=== PATIENT | male | born 1950 | race Caucasian/White ===

== ENCOUNTER 2020-07-12 22:16 | Inpatient (IN) | payer SELFPAY ==
[~2020-07-12] VITALS: Ht 175.3 cm; Wt 68.0 kg
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
--- NOTE | 2020-07-12 22:28 | NUR ---
TECH AT BEDSIDE FOR WOUND CARE
--- NOTE | 2020-07-12 22:48 | NUR ---
ENGINEERING INSPECTION ASSISTANT AT BEDSIDE FOR BLOOD DRAW
[2020-07-12 22:59] LABS: BASOPHILS # (AUTO) 0.1 /CMM (0.0-0.2); BASOPHILS % (AUTO) 0.5 % (0.0-2.0); EOSINOPHILS % (AUTO) 0.1 % (0.0-6.0); HEMATOCRIT 45 % (39-51); HEMOGLOBIN 15.2 g/dL (13.5-17.5); LYMPHOCYTES % (AUTO) 9.4 % (20.0-44.0); MEAN CORPUSCULAR HGB CONC 34 g/dl (31.0-36.0); MEAN CORPUSCULAR VOLUME 94 fL (80-96); MONOCYTES # (AUTO) 0.9 /CMM (0.1-1.30); MONOCYTES % (AUTO) 8.7 % (2.0-12.0); NEUTROPHILS # (AUTO) 8.7 /CMM (1.8-8.9); NEUTROPHILS % (AUTO) 81.3 % (43.0-81.0); PLATELET COUNT (AUTO) 182 /CMM (150-450); WHITE BLOOD COUNT (AUTO) 10.6 K/uL (4.3-11.0)
[2020-07-12] MEDS ORDERED: OLANZAPINE 10 MG VIAL IM ONE ×2 (23:00)
[2020-07-12 23:11] LABS: CALCIUM, SERUM 9.2 mg/dL (8.5-10.1); CARBON DIOXIDE 24 mmol/L (21-32); CHLORIDE 104 mmol/L (98-107); CREATININE 1.2 mg/dL (0.6-1.3); GLUCOSE 88 mg/dL (74-106); POTASSIUM 3.7 mmol/L (3.5-5.1); SODIUM SERUM 141 mmol/L (136-145); UREA NITROGEN, BLOOD 24 mg/dL (7-18)
[2020-07-12 23:16] LABS: ALANINE AMINOTRANSFERASE 41 U/L (12-78); ALBUMIN 4.2 g/dL (3.4-5.0); ALCOHOL, BLOOD < 3 mg/dL (0-0); ALKALINE PHOSPHATASE 78 U/L (46-116); ASPARTATE AMINOTRANSFERASE 66 U/L (15-37); BILIRUBIN,DIRECT 0.3 mg/dL (0.0-0.2); BILIRUBIN,TOTAL 0.9 mg/dL (0.2-1.0); TOTAL PROTEIN, SERUM 7.5 g/dL (6.4-8.2)
[2020-07-12 23:18] LABS: ACETAMINOPHEN < 2 ug/ml (10-30)
[2020-07-13 05:10] LABS: BILIRUBIN,URINE SMALL (NEGATIVE); COLOR,URINE YELLOW (YELLOW); LEUKOCYTE ESTERASE ,URINE NEGATIVE (NEGATIVE); NITRITE, URINE NEGATIVE (NEGATIVE); PH,URINE 5.5 (5.0-8.0); PROTEIN,URINE TRACE mg/dl (NEGATIVE); UGLUCOSE NEGATIVE (NEGATIVE); UROBILINOGEN,URINE 0.2 EU/dL (0.2)
[2020-07-13 05:13] LABS: BACTERIA,URINE None seen /HPF (None Seen); HYALINE CASTS, URINE Few /LPF (None Seen); MUCUS,URINE Few /LPF (None Seen); RBC,URINE 0-2 /HPF (0-2); SQUAMOUS EPITHELIAL CELL,UR Few /HPF (None Seen); WBC,URINE 0-2 /HPF (0-3)
[2020-07-13] MEDS ORDERED: LORAZEPAM 1 MG TABLET ONE (05:40)
[2020-07-13] MEDS ORDERED: LORAZEPAM INJ 2 MG/ML VIAL ONE (05:45)
[2020-07-13] MEDS ORDERED: LORAZEPAM 1 MG TABLET PO ONE ×2 (06:00)
[2020-07-13] MEDS ORDERED: LORAZEPAM INJ 2 MG/ML VIAL IV ONE (06:00)
[2020-07-13] MEDS ORDERED: IV NS 0.9% 1,000 ML BAG IV ONE (06:00)
[2020-07-13] MEDS ORDERED: IV NS 0.9% 1,000 ML IV PRN (06:30)
[2020-07-13] MEDS ORDERED: ONDANSETRON HCL/PF 4 MG/2 ML VIAL IVP PRN (06:30)
[2020-07-13] MEDS ORDERED: Z GUARD REMEDY 2 OZ OINT TP PRN (06:30)
[2020-07-13] MEDS ORDERED: MAG HYDROX/AL HYDROX/SIMETH 30 ML UDC PO PRN (06:30)
[2020-07-13] MEDS ORDERED: PANTOPRAZOLE 40 MG VIAL IV SCH (09:00)
[2020-07-13] MEDS ORDERED: PANTOPRAZOLE 40 MG VIAL ONE (09:30)
--- NOTE | 2020-07-13 09:33 | NUR ---
Patient is resting comfortably in bed with eyes closed. Easily aroused. VSS
--- NOTE | 2020-07-13 09:42 | NUR ---
GOT BED 328-1 JEFF GUERRA
--- NOTE | 2020-07-13 09:48 | NUR ---
REPORT GIVEN TO JEFF GUERRA. AWAITING TRANSFER TO FLOOR.
[2020-07-13 10:00] VITALS: BP 121/72
--- NOTE | 2020-07-13 10:30 | NUR ---
RN ADMITTING NOTE Received report from Johnnie GUERRA. Patient is A/Ox1, confused, unable to respond to questions, incomprehensible words. Vital signs stable, spO2 100% on 2L NC. Tele monitor SR 50s-60s. IV line is clean and intact running NS @ 75mls/hr. Skin assessed, skin remains intact, old scab noted in the right forearm. Safety measures in place, bed alarm on, will continue with plan of care.
--- NOTE | 2020-07-13 10:30 | NUR ---
PER REPORT, PATIENT WAS GIVEN ZYPREXA AND ATIVAN IN ER DUE TO BEHAVIORAL PROBLEMS.
[2020-07-13 10:42] VITALS: BP 121/72
[2020-07-13] MEDS: LORAZEPAM INJ 2 MG/ML VIAL IV PRN ×2 (13:12→13:29)
--- NOTE | 2020-07-13 13:29 | NUR ---
Patient combative, hostile, attempting to harm staff, APOLINAR ARCHIBALD called security and several staff members at bedside, patient placed on four-point leather restraints, ativan PRN given. Called to inform Dr. Mancia. Addendum: 07/13/20 at 1335 by IRAM KIM RN CORRECTION: PATIENT IS ON 4-POINT VELCRO RESTRAINTS. Addendum: 07/13/20 at 1409 by IRAM KIM RN LATE ENTRY: AT 1340 REMOVED VELCRO RESTRAINTS AND CHANGED TO BILATERAL SOFT WRIST RESTRAINTS. Addendum: 07/13/20 at 1416 by IRAM KIM RN LATE ENTRY: AT 1345, SPOKE WITH DR. MANCIA AND RECEIVED TELEPHONE ORDER FOR ATIVAN 1MG IM Q3HRS PRN, PSYCH CONSULT AND CRISIS EVAL.
--- NOTE | 2020-07-13 13:30 | NUR ---
I WAS NOTIFIED BY THE CLIENT SUPPORT CONSULTANT THAT THE PATIENT WAS WAKING UP AND STARTING TO GET AGITATED. PATIENT WAS HOSTILE, KICKING, PUNCHING, ATTEMPTING TO BITE AND SPIT AT STAFF MEMBERS, REMOVED IV LINE. I CALLED APOLINAR ARCHIBALD AND WAS TRYING TO GET A HOLD OF MD ON THE PHONE. FIVE MALE STAFF MEMBERS RAN TO THE BEDSIDE, 3 SECURITY GUARDS, CHARGE NURSE AT BEDSIDE, AND NURSING FORENSIC TOXICOLOGIST AT THE BEDSIDE. PER NURSING FORENSIC TOXICOLOGIST SHE RECEIVED ORDERS FROM [employer] ELECTRICIAN FOR RESTRAINTS AND ATIVAN FOR EMERGENCY RESTRAINT 4-POINT VELCRO RESTRAINTS SINCE THE PATIENT IS NOT ABLE TO BE CONTROLLED BY STAFF. RESTRAINTS WERE PLACED BY SECURITY. ADMINISTERED ATIVAN IM. SECURITY REMAINED AT THE BEDSIDE, HARD RESTRAINTS WERE THEN REMOVED BY SECURITY. PATIENT WAS THEN PLACED ON BILATERAL SOFT WRIST RESTRAINTS. CIRCULATION CHECKED, SKIN ASSESSED. AWAITING FOR SITTER FROM NURSING FORENSIC TOXICOLOGIST.
[2020-07-13] MEDS ORDERED: LORAZEPAM INJ 2 MG/ML VIAL IM STA (13:35)
[2020-07-13] MEDS ORDERED: LORAZEPAM INJ 2 MG/ML VIAL IM PRN (13:43)
[2020-07-13 16:00] VITALS: BP 118/70
--- NOTE | 2020-07-13 16:00 | NUR ---
BILATERAL SOFT WRIST RESTRAINTS REMOVED, SKIN AND CIRCULATION INTACT. SITTER AT THE BEDSIDE FOR 1:1 OBSERVATION.
[2020-07-13] MEDS ORDERED: OLANZAPINE ZYDIS 5 MG TAB.RAPDIS PO SCH (17:00)
--- NOTE | 2020-07-13 18:47 | NUR ---
RN CLOSING NOTE Patient is sleeping in bed, in no acute distress, sitter at the bedside. Safety precautions in place, will endorse to housekeeping coordinator for [facility].
--- NOTE | 2020-07-13 19:15 | NUR ---
MS RN NOTES RECEIVED PATIENT IN THE BATHROOM,TAKING SHOWER,ALMOST THEIR FOR ALMOST 20 MINUTES,HE DOESNT WANT TO BE CHECK,COMBATIVE WITH STAFF,SITTER INSIDE THE ROOM.
--- NOTE | 2020-07-13 19:20 | NUR ---
MS RN NOTES DOESNT WANT TO GET OUT FROM THE RESTROOM,COMBATIVE,TRYING TO HURT STAFF,APOLINAR ARCHIBALD WAS CALLED THIS TIME.
--- NOTE | 2020-07-13 19:25 | NUR ---
MS RN NOTES CODE VIERA TEAM AT BEDSIDE.HOSPITAL SECURITIES,PARASITOLOGY TEACHER'S TRYING CALM DOWN PATIENT BUT STILL COMBATIVE,CLAIMED HE WANTS TO GET OUT OF THE PLACE,HE WANTS TO DRINK ALCOHOL.
--- NOTE | 2020-07-13 19:35 | NUR ---
MS RN NOTES WENT OUT AGAINST MEDICAL ADVICE VIA WHEELCHAIR ACCOMPANIED BY HOLLIS AND APOLINAR VIERA TEAM.REFUSED TO SIGN AMA FORM,COMBATIVE.PATIENT IS HOMELESS AND HE WANTS TO GO BACK TO STREET.
== END 2020-07-13 19:20 | disposition left against medical advice (07) | DRG 885 ==
LOC: ER 22:24 → TELE 07-13 09:47
PROVIDERS: ADMIT Internal Medicine; ATTEND Internal Medicine
DX: F29 Unspecified psychosis not due to a substance or known physiological condition (principal); G92 Toxic encephalopathy; G93.40 Encephalopathy, unspecified; F15.20 Other stimulant dependence, uncomplicated; F19.159 Other psychoactive substance abuse with psychoactive substance-induced psychotic disorder, unspecified; Z59.0 Homelessness; Z20.822 Contact with and (suspected) exposure to COVID-19; F12.10 Cannabis abuse, uncomplicated
CPT/HCPCS: 36415; 70450-TC; 80048-TC; 80076-TC; 81001; 85025-TC; 87081-TC; C9113; C9803; G0378; G0480; J2060; J3490; J7030